=== PATIENT | female | born 1965 | race Caucasian/White ===

== ENCOUNTER 2019-07-25 08:06 | Outpatient (CLI) | payer BC, SELFPAY ==
--- NOTE | ~2019-07-25 | MM_ITS ---
EXAMINATION: MM screening katherine BI w eloisa HISTORY: Screening mammogram TECHNIQUE: Craniocaudal and mediolateral oblique 3-D tomosynthesis images were obtained and synthetic 2-D images were generated. CAD analysis was submitted and interpreted. COMPARISON: Comparison to multiple prior studies sequentially, with oldest reviewed study dated 02/03. BREAST PARENCHYMAL COMPOSITION: The breasts are heterogeneously dense, which may obscure small masses . FINDINGS: There is no evidence of suspicious mass, calcification, or architectural distortion to sugg est malignancy in either breast. There has been no suspicious interval change. IMPRESSION: 1. No mammographic evidence of malignancy. 2. Recommend routine screening mammography in one year. BI-RADS Category 1: Negative Reviewed, dictated and finalized at location A.
== END 2019-07-25 08:07 | disposition home or self-care (01) ==
LOC: ANHIMG 08:11
PROVIDERS: PCP Family Medicine; Visit Provider Family Medicine
DX: Z12.31 Encounter for screening mammogram for malignant neoplasm of breast (principal)
CPT/HCPCS: 77063; 77067

== ENCOUNTER → 2020-09-24 08:48 | Outpatient (CLI) | payer BC, SELFPAY ==
[2020-09-24 16:57] LABS: SARS-CoV-2 RNA PCR Negative
== END ==
PROVIDERS: PCP Family Medicine; Visit Provider Family Medicine
DX: R05 Cough (principal); Z20.822 Contact with and (suspected) exposure to COVID-19
CPT/HCPCS: C9803; U0003; U0005

== ENCOUNTER 2020-12-17 14:52 | Outpatient (CLI) | payer BC, SELFPAY ==
--- NOTE | ~2020-12-17 | MM_ITS ---
EXAMINATION: MM screening katherine BI w eloisa HISTORY: Screening TECHNIQUE: Craniocaudal and mediolateral oblique 3-D tomosynthesis images were obtained and synthetic 2-D images were generated. CAD analysis was submitted and interpreted. COMPARISON: Comparison to multiple prior studies sequentially, with oldest reviewed study dated 02/03. BREAST PARENCHYMAL COMPOSITION: There are scattered areas of fibroglandular density. FINDINGS: There is no evidence of suspicious mass, calcification, or architectural distortion to sugg est malignancy in either breast. There has been no suspicious interval change. IMPRESSION: 1. No mammographic evidence of malignancy. 2. Recommend routine screening mammography in one year. BI-RADS Category 1: Negative Reviewed, dictated and finalized at location A.
== END 2020-12-17 14:53 | disposition home or self-care (01) ==
PROVIDERS: PCP Family Medicine; Visit Provider Obstetrics & Gynecology
DX: Z12.31 Encounter for screening mammogram for malignant neoplasm of breast (principal)
CPT/HCPCS: 77063; 77067

== ENCOUNTER → 2021-05-14 03:37 | Outpatient (CLI) | payer BC, SELFPAY ==
[2021-05-14 22:11] LABS: SARS-CoV-2 RNA PCR Negative
== END ==
PROVIDERS: PCP Family Medicine; Visit Provider Family Medicine
DX: R05.9 Cough, unspecified (principal); Z20.822 Contact with and (suspected) exposure to COVID-19
CPT/HCPCS: C9803; U0003; U0005

== ENCOUNTER 2022-03-17 08:37 | Outpatient (CLI) | payer BC, SELFPAY ==
--- NOTE | ~2022-03-17 | MM_ITS ---
EXAMINATION: MM screening katherine BI w eloisa HISTORY: Screening mammogram TECHNIQUE: Craniocaudal and mediolateral oblique 3-D tomosynthesis images were obtained and synthetic 2-D images were generated. Bilateral rotated lateral CC views. CAD analysis was submitted and interp reted. COMPARISON: 12/17/2020, 07/25/2019 bilateral screening mammogram examinations 08/15/2017 diagnostic left mammogram and limited left breast ultrasound 07/24/2017 bilateral screening mammogram BREAST PARENCHYMAL COMPOSITION: There are scattered areas of fibroglandular density. FINDINGS: Stable fibroglandular asymmetry There is no evidence of suspicious mass, calcification, or architectural distortion to suggest malignancy in either breast. There has been no suspicious interva l change. IMPRESSION: 1. No mammographic evidence of malignancy. 2. Recommend routine screening mammography in one year. BI-RADS Category 2: Benign finding(s). Reviewed, dictated and finalized at location A. CENTER SUPERVISOR
== END 2022-03-17 08:38 | disposition home or self-care (01) ==
PROVIDERS: PCP Family Medicine; Visit Provider Obstetrics & Gynecology
DX: Z12.31 Encounter for screening mammogram for malignant neoplasm of breast (principal)
CPT/HCPCS: 77063; 77067

== ENCOUNTER 2023-06-06 08:05 | Outpatient (CLI) | payer BC, SELFPAY ==
--- NOTE | ~2023-06-06 | DEXA_ITS ---
Bone Density Report Name: BAN NICHOLS Age: 57 Sex: Female Ethnicity: White Date of : 1965 Indication: screening for osteoporosis; prior fracture; hysterectomy; Referring Provider: JASWANT DAVEY Study: Bone densitometry was performed. Exam Date: June 06, 2023 Accession number: [id number] Bone Density: Region BMD T-score Z-score Classification AP Spine(L1-L4) 1.164 1.1 2.3 Normal Femoral Neck (Left) 0.779 -0.6 0.5 Normal Total Hip (Left) 1.024 0.7 1.5 Normal Femoral Neck (Right) 0.795 -0.5 0.7 Normal Total Hip (Right) 0.992 0.4 1.2 Normal Total Hip Mean 1.008 0.6 1.4 Normal World Health Organization criteria for BMD impression classify patients as: Normal (T-score at or above -1.0), Osteopenia (T-score between -1.0 and -2.5), or Osteoporosis (T-score at or below -2.5). 10-year Fracture Risk: FRAX not reported because: Premenopausal woman All T-scores for Spine Total, Hip Total, Femoral Neck at or above -1.0 Clinical Information Provided by Patient: Has had a low trauma fracture Smokes Has used the following medications: Vitamin D, Calcium Has the following medical conditions: Hysterectomy Patient maximum height was 67 No regular weight bearing exercise Drinks caffeinated beverages Onset of menses at age 12 Premenopausal Number of children 3 Impression: The patient's bone mass is within expected range for age, gender and ethnicity. The patient has risk factors, including: smoking, previous fracture. Discussion: BONE DENSITY IS WITHIN EXPECTED LIMITS FOR AGE, SEX AND RACE. Bone density is within expected limits for age, sex and race at all sites measured. The patient should follow a healthful lifestyle (good nutrition with adequate calcium and vitamin D, and appropriate weight-bearing exercise). Follow-Up: Consider repeating this study in 5 years or sooner if there is some new clinical indication. Reported by: ANNAMARIE on 06/06/2023 9:00:00 AM. Reviewed, dictated and finalized at location A.
--- NOTE | ~2023-06-06 | MM_ITS ---
EXAMINATION: MM screening katherine BI w eloisa HISTORY: Screening TECHNIQUE: Craniocaudal and mediolateral oblique 3-D tomosynthesis images were obtained and synthetic 2-D images were generated. CAD analysis was submitted and interpreted. COMPARISON: Comparison to multiple prior studies sequentially, with oldest reviewed study dated 07/24. BREAST PARENCHYMAL COMPOSITION: There are scattered areas of fibroglandular density. FINDINGS: There is no evidence of suspicious mass, calcification, or architectural distortion to sugg est malignancy in either breast. There has been no suspicious interval change. IMPRESSION: 1. No mammographic evidence of malignancy. 2. Recommend routine screening mammography in one year. BI-RADS Category 1: Negative Reviewed, dictated and finalized at location A. OR PROJECT COORDINATOR
== END 2023-06-06 08:06 | disposition home or self-care (01) ==
PROVIDERS: PCP Family Medicine; Visit Provider Obstetrics & Gynecology
DX: Z12.31 Encounter for screening mammogram for malignant neoplasm of breast (principal); Z82.62 Family history of osteoporosis; Z78.0 Asymptomatic menopausal state
CPT/HCPCS: 77063; 77067; 77080

== ENCOUNTER 2023-11-14 11:01 | Outpatient (CLI) | payer BC, SELFPAY ==
--- NOTE | ~2023-11-14 | XR_ITS ---
XR chest 2V 11/14/2023 11:13 Indication: Cough for 3 weeks. History of smoking. Procedure: 2 view chest Comparison: No prior studies for comparison. Findings: Heart size normal. No focal air space disease, pulmonary edema, pleural effusion or suspect ed pneumothorax. No acute osseous abnormality. Impression: 1: No acute cardiopulmonary disease. Reviewed, dictated and finalized at location B. Impression: 1: No acute cardiopulmonary disease.
== END 2023-11-14 11:02 ==
PROVIDERS: PCP Physician Assistant; Visit Provider Physician Assistant
DX: R05.9 Cough, unspecified (principal)
CPT/HCPCS: 71046

== ENCOUNTER 2024-06-25 08:01 | Outpatient (CLI) | payer BC, SELFPAY ==
--- OUTSIDE RECORDS SUMMARY | 2024-06-25 08:04 | XMS_ITS | Clinical Summary ---
Author Organization [facility] Address [address] [place] [address] Care Team Providers Care Supervisor Carbon Paper Coating Name Role Phone Unknown, Notinfile Unavailable Unavailable Octavio Carrillo MD Primary Care Provider Allergies No known active allergies Medications escitalopram (LEXAPRO) 10 mg tablet Take 10 mg by mouth daily 11/28/2021 Active estradioL (ESTRACE) 1 mg tablet Take 1 mg by mouth daily 11/27/2021 Active levothyroxine (SYNTHROID) 75 mcg tablet Take 75 mcg by mouth 11/27/2021 Active Active Problems Problem Noted Date Diagnosed Date Graves' disease 12/24/2021 Overactive bladder 12/24/2021 Tobacco dependence syndrome 12/24/2021 Postsurgical hypothyroidism 04/04/2017 Assessment & Plan (04/04/2017 2:52 PM BARREL FINISHER): Start Synthroid, 75 mcg daily. Take med in the morning, on an empty stomach, apart from food and other meds. Check TSH, free T4 in 6 wks F/u in 6 m Other specified forms of tremor 01/21/2014 Palpitations 01/21/2014 Resolved Problems Problem Noted Date Diagnosed Date Resolved Date Multinodular goiter 01/26/2017 04/04/20 17 Assessment & Plan (02/03/2017 12:32 PM CDT): This is a 51-year-old female who has a longstanding history with the diagnoses of a toxic multinodular goiter. Patient has perceived progressive increase in size and number of her thyroid nodules. Patient has been taken off of her methimazole secondary to recent normal thyroid blood work. Patient does exhibit mild local compressive symptoms. After reviewing patient's medical record, in correlation with her diagnostic testing and my physical findings I concur with Endocrinology in that the patient meets criteria to undergo a minimally invasive total thyroidectomy. Continuous recurrent laryngeal nerve monitoring will be utilized. A thorough discussion took place today pertaining to the surgical management of thyroid disease. Collaboration on the recurrent laryngeal nerve and parathyroid glands were discussed. The potential functional disability that could incur should the structures be injured. All questions were answered to what appeared to be patient's understanding and satisfaction. After the procedure was explained in full the potential risk, complications, benefits and alternatives patient would like to proceed. Patient will be scheduled in a timely fashion. Assessment & Plan (01/26/2017 3:23 PM CDT): Ultrasound performed The patient refers to FNA's ( x 2 ) in the past Will try to get prior records Surgery is recommended. Name and number for Dr Gutiérrez provided. Hyperthyroidism 01/26/2017 04/04/2017 Assessment & Plan (03/24/2017 11:07 AM BARREL FINISHER): Patient was instructed to call Dr. Cornell is a office to discuss being placed on thyroid hormone replacement. Currently, patient is asymptomatic. Patient states she has a very busy holiday season and wants to make sure she does not become symptomatic. Additional wound care instructions were discussed. Assessment & Plan (01/26/2017 1:32 PM CDT): Options of treatment discussed at length, including oral meds ( Thionamides ) vs LINTON ablation vs surgery were explained. Will check thyroid function tests. Because of the size and multiplicity of the thyroid nodules, surgery is recommended. She seems to be receptive to this option. Depending on Thyroid levels, might need Tapazole before surgery and /or betablockers. Immunizations Immunization Administration Dates Next Due Influenza, Quadrivalent, Split, Intramuscular Influenza, Trivalent, IM (MDV) 05/31/2017,2014 Tdap 07/02/2020,05/31/2017 Surgical History Surgery Date Site/Laterality Comments TOTAL THYROIDECTOMY Medical History Medical History Date Comments Hyperthyroidism Graves' disease 12/24/2021 Overactive bladder 12/24/2021 Family History Relation Name Status Comments Mother Alive Social History Tobacco Use Types Packs/Day Years Used Date Smoking Tobacco: Some Days Cigarettes Smokeless Tobacco: Never Tobacco Cessation:Ready to Q uit: No; Counseling Given: Yes Alcohol Use Standard Drinks/Week Comments No 0 (1 standard drink = 0.6 oz pur e alcohol) Personal Safety Answer Date Recorded Getting School Help Needed Not on file 07/02 Comments Unknown Sex and Gender Information Value Date Recorded Sex Assigned at Not on file Legal Sex Female 4:41 PM BARREL FINISHER Gender Identity Not on file Sexual Orientation Not on file Obstetrics History Last Filed Vital Signs Vital Sign Reading Time Taken Comments Blood Pressure 131/87 12/24/2021 9:01 AM CDT Pulse 82 12/24/2021 9:01 AM CDT Temperature - - Respiratory Rate 12 04/04/2017 2:18 PM BARREL FINISHER Oxygen Saturation - - Inhaled Oxygen Concentration - - Weight 72.2 kg (159 lb 3.2 oz) 12/24/2021 9:01 A M CDT Height 168.9 cm (5' 6.5 ) 12/24/2021 9:01 AM CDT Body Mass Index 25.31 12/24/2021 9:01 AM CDT Plan of Treatment Health Maintenance Due Date Last Done Comments Breast Cancer Screening-Mammogram 1965 Cervical Cancer Screening 1965 Colon Cancer Screening-Colonoscopy 1965 Hepatitis C Screening 1965 Pneumococcal vaccine <65 (1 of 2 - PCV) 12/21/1971 Hepatitis B Screening 12/21/1983 Regular Well Visit/Exam 18-64 12/21/1983 Zoster Vaccine (1 of 2) 12/21/2015 Depression Screening 04/04/2018 04/04/2017, 01/27/20 17 Covid-19 Vaccine ( season) 01/07/202406/2020, 07/17/2020 Influenza Vaccine (#1) 2024 0, 05/31/2017, 02/18/2015 DTaP/Tdap/Td Vaccine (3 - Td or Tdap) 07/02/2030, 05/31/2017 Insurance [employer] OOS Care Teams Supervisor Carbon Paper Coating Relationship Specialty Start Date End Date Octavio Carrillo MD [address] [place] [id number] PCP - General Family Medicine 12/15/21 Unknown, Notinfile 01/26/17
--- OUTSIDE RECORDS SUMMARY | 2024-06-25 08:04 | XMS_ITS | Clinical Summary ---
Author Organization [facility] Address [address] [place] [place] [address] Care Team Providers Care Scientific Software Engineer Name Role Phone Unavailable Primary Care Provider Unavailabl e Source Comments [facility] [facility],non-owned Affiliates and Associated Physician Practices is amultiple site organization consisting of ambulatory clinics and hospital sitesin [place], [place], [place] and [place]. This disclosure is being madepursuant to the Care Everywhere program and may not contain all information available regarding this patient. Last updated 18.[facility] Active Problems Problem Noted Date Diagnosed Date Other malaise 02/19/2015 Thyrotoxicosis with diffuse goiter and without thyroid storm 02/04/2014 Anemia 02/04/2014 Overview (08/07/2017): historical Other specified postprocedural states 01/21/2014 Overview (08/07/2017): Age 4 Acquired absence of other organs 01/21/2014 Adverse effect of selective serotonin reuptake i nhibitor 01/21/2014 Personal history of other di seases of the circulatory system 01/21/2014 Other specified forms of tremor 01/21/2014 Acquired absence of both cervix and uterus 01/21 Overview (08/07/2017): Ovaries in Palpitations 01/21/2014 Abnormal weight loss 01/21/2014 Family History Medical History Relation Name Comments Thyroid Disease Mother hyperthyroid thionamide for 2 y Heart Disease Neg Hx Relation Name Status Comments Mother Social History Tobacco Use Types Packs/Day Years Used Date Smoking Tobacco: Every Day Smokeless Tobacco: Never Alcohol Use Standard Drinks/Week Comments Yes 0 (1 standard drink = 0.6 oz pur e alcohol) Sex and Gender Information Value Date Recorded Sex Assigned at Not on file Gender Identity Not on file Sexual Orientation Not on file Last Filed Vital Signs Vital Sign Reading Time Taken Comments Blood Pressure 108/70 02/04/2014 10:05 AM CDT Pulse 84 02/04/2014 10:05 AM CDT Temperature 36.4 C (97.6 F) 02/04/2014 10:05 AM CDT Respiratory Rate 20 02/04/2014 10:05 AM CDT Oxygen Saturation 98% 01/21/2014 10:55 AM CDT Inhaled Oxygen Concentration - - Weight 62 kg (136 lb 9.6 oz) 02/04/2014 10:05 AM CDT Height 165.1 cm (5' 5 ) 01/21/2014 10:55 AM CDT Body Mass Index 22.73 01/21/2014 10:55 AM CDT Plan of Treatment Health Maintenance Due Date Last Done Comments COLOGUARD (AGES 45-75) - COL ON CA SCREENING 1965 COLON MONITORING 1965 COLONOSCOPY - COLON CA SCREENING 1965 CT COLONOGRAPHY - COLON CA SCREENING 1965 Colorectal Cancer Screening 1965 FIT - COLON CA SCREENING 1965 FLEX SIG - COLON CA SCREENING 1965 LIPID TESTING 1965 MAMMOGRAM 1965 PAP SMEAR 1965 HIV SCREENING 1980 HEPATITIS C SCREENING 12/16/1983 DTAP/TDAP/TD VACCINES (1 - Tdap) 1984 HEPATITIS B VACCINE (1 of 3 - 19+ 3-dose series) 1984 PNEUMOCOCCAL VACCINE 50+ (1 of 2 - PCV) 1984 PNEUMOCOCCAL VACCINE (1 of 2 - PCV) 1984 ZOSTER VACCINE (1 of 2) 12/21/2015 COVID-19 VACCINE ( - 2023-2 5 season) 2024 INFLUENZA VACCINE (#1) 2024 DEPRESSION SCREENING 05/08/2024 HIB VACCINE Aged Out No longer eligi ble based on patient's age to complete this topic HPV VACCINE Aged Out No longer eligi ble based on patient's age to complete this topic MENINGOCOCCAL (Group B) VACCINE Aged Out No longer eligible based on patient's age to complete this topic MENINGOCOCCAL VACCINE Aged Out No nahs bacilio eligible based on patient's age to complete this topic
--- OUTSIDE RECORDS SUMMARY | 2024-06-25 08:04 | XMS_ITS | Clinical Summary ---
Author Organization [facility] Address [facility] [place] [address] Care Team Providers Care Press Operator Assistant Name Role Phone Zoë Shahid MD Primary Care Provider [phone] Allergies No known active allergies Medications hydrocodone-acet aminophen 5-325 MG tablet Take 1 tablet by mouth every 6 (six) hours as needed for Pain. 12 tablet 04/14/2017 Active Social History Tobacco Use Types Packs/Day Years Used Date Smoking Tobacco: Every Day Smokeless Tobacco: Current Alcohol Use Standard Drinks/Week Comments No 0 (1 standard drink = 0.6 oz pur e alcohol) Comments No Sex and Gender Information Value Date Recorded Sex Assigned at Not on file Legal Sex Female 12:40 PM OVERNIGHT STOCKER Gender Identity Not on file Sexual Orientation Not on file Last Filed Vital Signs Vital Sign Reading Time Taken Comments Blood Pressure 139/85 04/14/2017 12:45 PM OVERNIGHT STOCKER Pulse 94 04/14/2017 12:45 PM OVERNIGHT STOCKER Temperature 37.2 C (98.9 F) 04/14/2017 12:45 PM OVERNIGHT STOCKER Respiratory Rate 18 04/14/2017 12:45 PM OVERNIGHT STOCKER Oxygen Saturation 100% 04/14/2017 12:45 PM OVERNIGHT STOCKER Inhaled Oxygen Concentration - - Weight 63.5 kg (140 lb) 04/14/2017 12:49 PM OVERNIGHT STOCKER Height 167.6 cm (5' 6 ) 04/14/2017 12:49 PM OVERNIGHT STOCKER Body Mass Index 22.6 04/14/2017 12:49 PM OVERNIGHT STOCKER Plan of Treatment Health Maintenance Due Date Last Done Comments Colorectal Cancer Screening Colonoscopy (10 Years) 1965 Annual Physical 1968 Pneumococcal Vaccine: Pediat rics (0 to 5 Years) and At-Risk Patients (6 to 64 Years) (1 of 2 - PCV) 12/21/1971 Hepatitis C 12/21/1983 DTaP, Tdap and Td Vaccines ( 1 - Tdap) 1984 Hepatitis B Vaccines (1 of 3 - 19+ 3-dose series) 1984 Mammogram Screening 2005 Zoster Vaccines (1 of 2) 12/21/2015 COVID-19 Vaccine (1 - 2023-2 5 season) 2024 Influenza Adult (#1) 2024 Meningococcal B Vaccine Aged Out No l onger eligible based on patient's age to complete this topic Meningococcal Vaccine Aged Out No nash bacilio eligible based on patient's age to complete this topic RSV Immunizations Under 20 Months Aged Out No longer eligible based on patient's age to complete this topic Insurance GENERIC - [employer] Care Teams Press Operator Assistant Relationship Specialty Start Date End Date Zoë Shahid MD PCP - General FAMILY PRACTICE 04/14/17
--- OUTSIDE RECORDS SUMMARY | 2024-06-25 08:04 | XMS_ITS | Referral Summary ---
Author Organization [facility] Address [address] [place] [address] Care Team Providers Care Silver Recovery Operator Name Role Phone Unknown, Notinfile Unavailable Unavailable Octavio Carrillo MD Primary Care Provider [phone] Allergies No known active allergies Medications escitalopram [...] 04/04/2017 Assessment & Plan (04/04/2017 2:52 PM ASPHALT STILL OPERATOR): Start Synthroid, 75 mcg daily. Take med [...] 04/04/2017 Assessment & Plan (03/24/2017 11:07 AM ASPHALT STILL OPERATOR): Patient was instructed to call Dr. Cornell [...] Influenza, Trivalent, IM (MDV) 05/31/2017,2014 Tdap 07/02/2020,05/31/2017 Social History Tobacco Use Types Packs/Day Years [...] on file Legal Sex Female 4:41 PM ASPHALT STILL OPERATOR Gender Identity Not on file Sexual Orientation Not on file Last Filed Vital Signs Vital Sign Reading Time Taken Comments Blood Pressure 131/87 12/24/2021 9:01 AM CDT Pulse 82 12/24/2021 9:01 AM CDT Temperature - - Respiratory Rate 12 04/04/2017 2:18 PM ASPHALT STILL OPERATOR Oxygen Saturation - - Inhaled Oxygen Concentration - - Weight 72.2 kg (159 lb 3.2 oz) 12/24/2021 9:01 A M CDT Height 168.9 cm (5' 6.5 ) 12/24/2021 9:01 AM CDT Body Mass Index 25.31 12/24/2021 9:01 AM CDT Plan of Treatment Not on file Insurance [employer] OOS Care Teams Silver Recovery Operator Relationship Specialty Start Date End Date Octavio Carrillo MD [address] [facility] [place] [id number] PCP - General Family Medicine 12/15/21 Unknown, Notinfile 01/26/17
--- OUTSIDE RECORDS SUMMARY | 2024-06-25 08:04 | XMS_ITS | Referral Summary ---
Author Organization [facility] Address [address] [facility] [place] [address] Care Team Providers Care First Assistant Name Role Phone Unavailable Primary Care Provider Unavailabl e Source Comments [facility],non-owned Affiliates and Associated Physician Practices is amultiple site organization consisting of ambulatory clinics and hospital sitesin [place], [place]. This disclosure is being madepursuant to the Care Everywhere program and may not contain all information available regarding this patient. Last updated 18.[facility] [employer] Active Problems Problem Noted Date Diagnosed Date [...] in Palpitations 01/21/2014 Abnormal weight loss 01/21/2014 Social History Tobacco Use Types Packs/Day Years [...] 01/21/2014 10:55 AM CDT Plan of Treatment Not on file
--- OUTSIDE RECORDS SUMMARY | 2024-06-25 08:04 | XMS_ITS | Patient Health Summary ---
Author Organization [facility] Address [address] [place] [address] Care Team Providers Care Induction Heat Treater Name Role Phone Unavailable Primary Care Provider Unavailabl e Note from [facility],non-owned Affiliates and Associated Physician Practices is amultiple site organization consisting of ambulatory clinics and hospital sitesin [place], [place], [place] and [place]. This disclosure is being madepursuant to the Care Everywhere program and may not contain all information available regarding this patient. Last updated 18.[facility] Active Problems Problem Noted Date Diagnosed Date Other malaise 02/19/2015 Thyrotoxicosis with diffuse goiter and without thyroid storm 02/04/2014 Anemia 02/04/2014 Other specified postprocedural states 01/21/2014 Acquired absence of other organs 01/21/2014 Adverse effect of selective serotonin reuptake i nhibitor 01/21/2014 Personal history of other di seases of the circulatory system 01/21/2014 Other specified forms of tremor 01/21/2014 Acquired absence of both cervix and uterus 01/21 Palpitations 01/21/2014 Abnormal weight loss 01/21/2014 Social [...] Mass Index 22.73 01/21/2014 10:55 AM CDT Procedures * T4 FREE(Performed 03/11/2014) * T3 FREE(Performed 03/11/2014) * ALT(Performed 03/11/2014) * TSH(Performed 03/11/2014) * CBC W AUTO DIFFERENTIAL(Performed 03/11/2014) * NM THYROID UPTAKE AND SCAN(Performed 01/28/2014) * ERYTHROCYTE SEDIMENTATION RATE(Performed 01/21/2014) * TSH(Performed 01/21/2014) * T4 FREE(Performed 01/21/2014) * T3 FREE(Performed 01/21/2014) * COMPREHENSIVE METABOLIC PANEL(Performed 01/21/2014) * CBC W AUTO DIFFERENTIAL(Performed 01/21/2014) * THYROTROPIN RECEPTOR ANTIBODY(Performed 01/21/2014) * CBC W AUTO DIFFERENTIAL(Performed 01/21/2014) Results * (ABNORMAL) T3 FREE (03/11/2014 7:13 AM FINE SANDER) Only the most recent of2 resultswithin the time period is included. [facility] T3 Free 6.1(H) 2.3 - 4.2 pg/mL [facility] ([facility]) Comment: REPORT COMMENT: START IN 4 WEEKS; START IN 4 WEEKS; START IN 4 WEEKS; START FASTING Test Performed at: [employer] [place] [address] [place] [address] ANANT GOFF DO,MPH Blood specimen (specimen) BLOOD SPECIMEN / Unknown 03/11/2014 7:13 AM FINE SANDER 03/11/2014 7:14 AM FINE SANDER Narrative [facility] ([facility]) - 03/12/2014 2:00 AM FINE SANDER Start in 4 weeks Moises Blue MD LAB - CHEMISTRY JEAN-PIERRE TAVERA [facility] ([facility]) * CBC W AUTO DIFFERENTIAL (03/11/2014 7:13 AM FINE SANDER) Only the most recent of3 resultswithin the time period is included. [facility] WBC 5.3 3.8 - 10.8 Thousand/u L [facility] ([facility]) RBC 4.30 3.80 - 5.10 Million/uL [facility] ([facility]) Hemoglobin 13.4 11.7 - 15.5 g/dL [facility] ([facility]) Hematocrit 39.5 35.0 - 45.0 % [facility] ([facility]) MCV 91.8 80.0 - 100.0 fL [facility] ([facility]) MCH 31.1 27.0 - 33.0 pg [facility] ([facility]) MCHC 33.9 32.0 - 36.0 g/dL [facility] ([facility]) RDW-CV 14.4 11.0 - 15.0 % [facility] ([facility]) Platelet 235 140 - 400 Thousand/u L [facility] ([facility]) Neutrophils Absolute 2,549 1,500 - 7,800 cells/uL [facility] ([facility]) Lymphocyte Absolute Manual 2,279 850 - 3,900 cells/uL [facility] ([facility]) Monocytes Absolute 292 200 - 950 cells/uL [facility] ([facility]) Eosinophils Absolute 164 15 - 500 cells/uL [facility] ([facility]) Basophil Absolute Manual 16 0 - 200 cells/uL [facility] ([facility]) Neutrophils % 48.1 % [facility] ([facility]) Lymphocytes % 43.0 % [facility] ([facility]) Monocytes % 5.5 % [facility] ([facility]) Eosinophils % 3.1 % [facility] ([facility]) Basophil % 0.3 % [facility] ([facility]) Comment: Test Performed at: [place] [address] ANANT GOFF DO,MPH Blood specimen (specimen) BLOOD SPECIMEN / Unknown 03/11/2014 7:13 AM FINE SANDER 03/11/2014 7:14 AM FINE SANDER Narrative [facility] ([facility]) - 03/12/2014 2:00 AM FINE SANDER Start in 4 weeks Moises Blue MD LAB - HEMATOLOGY ORD ERABLES [facility] ([facility]) * ALT (03/11/2014 7:13 AM FINE SANDER) Pathologist [facility] ALT 15 6 - 29 U/L [facility] ([facility]) Comment: Test Performed at: [place] [address] ANANT GOFF DO,MPH Blood specimen (specimen) BLOOD SPECIMEN / Unknown 03/11/2014 7:13 AM FINE SANDER 03/11/2014 7:14 AM FINE SANDER Narrative [facility] ([facility]) - 03/12/2014 2:00 AM FINE SANDER Start in 4 weeks Moises Blue MD LAB - CHEMISTRY JEAN-PIERRE TAVERA Performing Organization Address [facility] de Phone Number [facility] ([facility]) * (ABNORMAL) TSH (03/11/2014 7:13 AM FINE SANDER) Only the most recent of2 resultswithin the time period is included. TSH 0.01(L) mIU/L [facility] ([facility]) Comment: Reference Range > or = 20 Years 0.40-4.50 Ranges First trimester 0.26-2.66 Second trimester 0.55-2.73 Third trimester 0.43-2.91 Test Performed at: [employer] [place] [address] ANANT GOFF DO,MPH Blood specimen (specimen) BLOOD SPECIMEN / Unknown 03/11/2014 7:13 AM FINE SANDER 03/11/2014 7:14 AM FINE SANDER Narrative [facility] ([facility]) - 03/12/2014 2:00 AM FINE SANDER Start in 4 weeks Moises Blue MD LAB - CHEMISTRY JEAN-PIERRE TAVERA Performing Organization Address [facility] de Phone Number [facility] ([facility]) * T4 FREE (03/11/2014 7:13 AM FINE SANDER) Only the most recent of2 resultswithin the time period is included. T4 Free 1.6 0.8 - 1.8 ng/dL [facility] ([facility]) Comment: Test Performed at: [employer] [place] [place] [id number] ANANT GOFF DO,MPH Blood specimen (specimen) BLOOD SPECIMEN / Unknown 03/11/2014 7:13 AM FINE SANDER 03/11/2014 7:14 AM FINE SANDER Narrative [facility] ([facility]) - 03/12/2014 2:00 AM FINE SANDER Start in 4 weeks Moises Blue MD LAB - CHEMISTRY JEAN-PIERRE TAVERA [facility] Organization Address City/State/ZIP Co de Phone Number [facility] ([facility]) * NM THYROID UPTAKE AND SCAN (01/28/2014 8:56 AM CDT) Anatomical Region Laterality Modality Chest Other Impressions 01/28/2014 4:45 PM CDT Impression: 1. Bilaterally enlarged thyroid lobes 2. Increased area of uptake in the inferior aspect of the region of the thyroid, suggestive of retrosternal extension. 3. Subtle focal area of mild increased uptake superior to the thyroid, which may represent lingual thyroid. 4. I-123 thyroid uptake of 88.3% indicative of hyperactive thyroid gland. 5. We will be happy to treat the patient as clinically indicated. Dictated by Arnel Dewitt M.D. (radiology scheduler) This report was approved by ARNEL DEWITT on 01/28/2014 2:58 PM . I, Dr. CONNIE HOLDEN M.D. have personally reviewed and interpreted this examination/study. This report was electronically signed by CONNIE HOLDEN M.D. on 01/28/2014 4:45 PM . Narrative 01/28/2014 4:45 PM CDT Procedure: Thyroid Uptake and Imaging Agent: 51 mCi of I-123 Na Iodide capsule orally History: Hyperthyroid, likely autonomous. Most recent labs on 01/21/2014, is TSH of less than 0.004 micro-IU/mL, and FT4 of 2.4 ng/dL. Findings: Static anterior and anterior-oblique images show bilaterally enlarged thyroid lobes with a relatively large increased area of uptake in the inferior aspect of the region of the thyroid, suggestive of a retrosternal extension. In addition there is a subtle focal area of mild increased uptake superior to the thyroid, which may represent lingual thyroid. I-123 uptake within the thyroid gland at 24 hours 88.3%(Normal limits: 15%-35%). Procedure Note Connie Holden MD - 08/05/2017 Procedure: Thyroid Uptake and Imaging Agent: 51 mCi of I-123 Na Iodide capsule orally History: Hyperthyroid, likely autonomous. Most recent labs on 01/21/2014, is TSH ofless than 0.004 micro-IU/mL, and FT4 of 2.4 ng/dL. Findings: Static anterior and anterior-oblique images show bilaterally enlargedthyroid lobes with a relatively large increased area of uptake in theinferior aspect of the region of the thyroid, suggestive of a retrosternalextension. In addition there is a subtle focal area of mild increased uptake superior to the thyroid, whichmay represent lingual thyroid. I-123 uptake within the thyroid gland at 24 hours 88.3%(Normal limits:15%-35%). IMPRESSION Impression: 1. Bilaterally enlarged thyroid lobes 2. Increased area of uptake in the inferior aspect of the region of thethyroid, suggestive of retrosternal extension. 3. Subtle focal area of mild increased uptake superior to the thyroid,which may represent lingual thyroid. 4. I-123 thyroid uptake of 88.3% indicative of hyperactive thyroidgland. 5. We will be happy to treat the patient as clinically indicated. Dictated by Arnel Dewitt M.D. (radiology scheduler) This report was approved by ARNEL DEWITT on 01/28/2014 2:58 PM . I, Dr. CONNIE HOLDEN M.D. have personally reviewed and interpreted thisexamination/study. This report was electronically signed by CONNIE HOLDEN M.D. on 01/28/20144:45 PM . Moises Blue MD NM ORDERABLES * ERYTHROCYTE SEDIMENTATION RATE (01/21/2014 3:12 PM CDT) Pathologist [facility] Erythrocyte Sedimentation Rate Westergren 15 0 - 20 MM/HR [facility] Blood specimen (specimen) BLOOD SPECIMEN / Unknown 01/21/2014 3:12 PM CDT 01/21/2014 3:36 PM CDT Moises Blue MD LAB - HEMATOLOGY ORD ERABLES [address] [phone] * (ABNORMAL) COMPREHENSIVE METABOLIC PANEL (01/21/2014 3:12 PM CDT) BUN 12 7 - 26 mg/dL [facility] Creatinine 0.5(L) 0.6 - 1.2 mg/dL [facility] Sodium 140 136 - 145 mmol/L [facility] Potassium 4.1 3.5 - 4.5 mmol/L [facility] Chloride 106 98 - 107 mmol/L [facility] CO2 24 22 - 29 mmol/L [facility] Glucose 116(H) 70 - 115 mg/dL [facility] Calcium 8.9 8.4 - 10.2 mg/dL [facility] Protein Total 6.2 6.0 - 8.3 g/dL [facility] Albumin 3.2(L) 3.4 - 5.0 g/dL [facility] Bilirubin Total 0.4 0.2 - 1.2 mg/dL [facility] Alkaline Phosphatase 66 40 - 150 Units/L [facility] ALT 18 0 - 55 Units/L [facility] AST 17 5 - 34 Units/L [facility] Anion Gap 14 8 - 18 [facility] BUN/Creatinine Ratio 24(H) 7 - 23 [facility] Osmolality Calculated 276 270 - 300 mOsm/kg [facility] Albumin/Globulin Ratio 1.1 1.1 - 2.3 [facility] eGFR >60 >60 mL/min/1.7 3 m2 [facility] Blood specimen (specimen) BLOOD SPECIMEN / Unknown 01/21/2014 3:12 PM CDT 01/21/2014 3:37 PM CDT Moises Blue MD LAB - CHEMISTRY JEAN-PIERRE TAVERA [facility] Organization Address City/State/[facility] Co de Phone Number [address] [phone] * (ABNORMAL) THYROTROPIN RECEPTOR ANTIBODY (01/21/2014 3:12 PM CDT) Thyrotropin Receptor Antibody 3.47(H) 0.00 - 1.75 IU/L [facility] (BEAKER) Blood specimen (specimen) BLOOD SPECIMEN / Unknown 01/21/2014 3:12 PM CDT 01/22/2014 9:05 AM CDT Narrative [facility] ([place]) - 01/23/2014 3:21 PM CDT Performed at: - [address] [id number] Senior Chemist: Anant Montelongo MD, Phone: [phone] Moises Blue MD LAB - CHEMISTRY JEAN-PIERRE [facility] Organization Address City/State/ZIP Co de Phone Number [facility])
== END 2024-06-25 08:02 | disposition home or self-care (01) ==
LOC: ANHAUDIO 08:01
PROVIDERS: PCP Family Medicine; Visit Provider Family Medicine
DX: H91.90 Unspecified hearing loss, unspecified ear (principal)
CPT/HCPCS: 92557; 92567

== ENCOUNTER 2024-07-02 09:51 | Outpatient (CLI) | payer BC, SELFPAY ==
--- NOTE | ~2024-07-02 | MM_ITS ---
EXAMINATION: MM screening [facility] BI w eloisa HISTORY: Screening mammogram TECHNIQUE: Craniocaudal and mediolateral oblique 3-D tomosynthesis images were obtained and synthetic 2-D images were generated. CAD analysis was submitted and interpreted. COMPARISON: 06/06/2023, 03/17/2022, 12/17/2020 BREAST PARENCHYMAL COMPOSITION:Not Dense. There are scattered areas of fibroglandular density. FINDINGS: No suspicious mass, calcification, or architectural distortion are identified in either claudette ast to suggest malignancy. There has been no suspicious interval change. IMPRESSION: No mammographic evidence of malignancy. Recommend routine screening mammography in one year. BI-RADS Category 1: Negative Reviewed, dictated and finalized at location . [employer]
--- OUTSIDE RECORDS SUMMARY | 2024-07-02 11:09 | XMS_ITS | Clinical Summary ---
Author Organization [facility] Address [address] [place] [address] Care Team Providers Care Billing Control Clerk Name Role Phone Unknown, Notinfile Unavailable Unavailable Octavio Carrillo MD Primary Care Provider [phone] Allergies No known active allergies Medications escitalopram [...] 04/04/2017 Assessment & Plan (04/04/2017 2:52 PM DENTAL LABORATORY ASSISTANT): Start Synthroid, 75 mcg daily. Take med [...] 04/04/2017 Assessment & Plan (03/24/2017 11:07 AM DENTAL LABORATORY ASSISTANT): Patient was instructed to call Dr. Cornell [...] on file Legal Sex Female 4:41 PM DENTAL LABORATORY ASSISTANT Gender Identity Not on file Sexual Orientation Not on file Obstetrics History Last Filed Vital Signs Vital Sign Reading Time Taken Comments Blood Pressure 131/87 12/24/2021 9:01 AM CDT Pulse 82 12/24/2021 9:01 AM CDT Temperature - - Respiratory Rate 12 04/04/2017 2:18 PM DENTAL LABORATORY ASSISTANT Oxygen Saturation - - Inhaled Oxygen Concentration [...] Cancer Screening-Colonoscopy 1965 Hepatitis C Screening 1965 Hepatitis B Screening 12/21/1983 Regular Well Visit/Exam 18-64 12/21/1983 Pneumococcal vaccine <65 (1 of 2 - PCV) 1984 Zoster Vaccine (1 of 2) 12/21/2015 Depression Screening 04/04/2018 04/04/2017, 01/27/20 17 Covid-19 Vaccine ( season) 01/07/202406/2020, 07/17/2020 Influenza Vaccine (#1) 2024 0, 05/31/2017, 02/18/2015 DTaP/Tdap/Td Vaccine (3 - Td or Tdap) 07/02/2030, 05/31/2017 Insurance [employer] OOS Care Teams Billing Control Clerk Relationship Specialty Start Date End Date Octavio Carrillo MD [address] [place] [id number] PCP - General Family Medicine 12/15/21 Unknown, Notinfile 01/26/17
--- OUTSIDE RECORDS SUMMARY | 2024-07-02 11:09 | XMS_ITS | Referral Summary ---
Author Organization [facility] Address [address] [place] [address] Care Team Providers Care Front Desk Person Name Role Phone Unavailable Primary Care Provider Unavailabl e Source Comments [facility],non-owned Affiliates and Associated Physician Practices is amultiple site organization consisting of ambulatory clinics and hospital sitesin [place], [place], [place] and [place]. This disclosure is being madepursuant to the Care Everywhere program and may not contain all information available regarding this patient. Last updated 18.[facility] [employer] Active Problems Problem Noted Date Diagnosed Date [...]
--- OUTSIDE RECORDS SUMMARY | 2024-07-02 11:09 | XMS_ITS | Clinical Summary ---
Author Organization [facility] Address [address] [place] [address] Care Team Providers Care Oncology Admin Name Role Phone Unavailable Primary Care Provider Unavailabl e Source Comments [facility] [employer],non-owned Affiliates and Associated Physician Practices is amultiple site organization consisting of ambulatory clinics and hospital sitesin [place], [place], [place] and [place]. This disclosure is being madepursuant to the Care Everywhere program and may not contain all information available regarding this patient. Last updated 18.[facility] [employer] Active Problems Problem Noted Date Diagnosed Date [...] this topic MENINGOCOCCAL VACCINE Aged Out No nash bacilio eligible based on patient's age to complete this topic
--- OUTSIDE RECORDS SUMMARY | 2024-07-02 11:09 | XMS_ITS | Clinical Summary ---
Author Organization [facility] Address [facility] [place] [address] Care Team Providers Care Coffee Roaster Name Role Phone Zoë Shahid MD Primary Care Provider [phone] Allergies No known active allergies Medications hydrocodone-acet [...] on file Legal Sex Female 12:40 PM PARKING LOT LABORER Gender Identity Not on file Sexual Orientation Not on file Last Filed Vital Signs Vital Sign Reading Time Taken Comments Blood Pressure 139/85 04/14/2017 12:45 PM PARKING LOT LABORER Pulse 94 04/14/2017 12:45 PM PARKING LOT LABORER Temperature 37.2 C (98.9 F) 04/14/2017 12:45 PM PARKING LOT LABORER Respiratory Rate 18 04/14/2017 12:45 PM PARKING LOT LABORER Oxygen Saturation 100% 04/14/2017 12:45 PM PARKING LOT LABORER Inhaled Oxygen Concentration - - Weight 63.5 kg (140 lb) 04/14/2017 12:49 PM PARKING LOT LABORER Height 167.6 cm (5' 6 ) 04/14/2017 12:49 PM PARKING LOT LABORER Body Mass Index 22.6 04/14/2017 12:49 PM PARKING LOT LABORER Plan of Treatment Health Maintenance Due Date [...] complete this topic Insurance GENERIC - [place] [address] MEDICAL REIMBURSEMENTS OF [employer] Care Teams Coffee Roaster Relationship Specialty Start Date End Date Zoë Shahid MD PCP - General FAMILY PRACTICE 04/14/17
--- OUTSIDE RECORDS SUMMARY | 2024-07-02 11:09 | XMS_ITS | Referral Summary ---
Author Organization [facility] Address [address] [place] [address] Care Team Providers Care Tariff Compiling Clerk Name Role Phone Unknown, Notinfile Unavailable Unavailable Octavio Carrillo MD Primary Care Provider [phone] Allergies No known active allergies Medications escitalopram [...] 04/04/2017 Assessment & Plan (04/04/2017 2:52 PM BLINDSTITCH LAPEL PADDER): Start Synthroid, 75 mcg daily. Take med [...] 04/04/2017 Assessment & Plan (03/24/2017 11:07 AM BLINDSTITCH LAPEL PADDER): Patient was instructed to call Dr. Cornell [...] on file Legal Sex Female 4:41 PM BLINDSTITCH LAPEL PADDER Gender Identity Not on file Sexual Orientation Not on file Last Filed Vital Signs Vital Sign Reading Time Taken Comments Blood Pressure 131/87 12/24/2021 9:01 AM CDT Pulse 82 12/24/2021 9:01 AM CDT Temperature - - Respiratory Rate 12 04/04/2017 2:18 PM BLINDSTITCH LAPEL PADDER Oxygen Saturation - - Inhaled Oxygen Concentration - - Weight 72.2 kg (159 lb 3.2 oz) 12/24/2021 9:01 A M CDT Height 168.9 cm (5' 6.5 ) 12/24/2021 9:01 AM CDT Body Mass Index 25.31 12/24/2021 9:01 AM CDT Plan of Treatment Not on file Insurance [employer] OOS Care Teams Tariff Compiling Clerk Relationship Specialty Start Date End Date Octavio Carrillo MD [address] [facility] [place] [id number] PCP - General Family Medicine 12/15/21 Unknown, Notinfile 01/26/17
--- OUTSIDE RECORDS SUMMARY | 2024-07-02 11:09 | XMS_ITS | Patient Health Summary ---
Author Organization [facility] Address [address] [place] [address] Care Team Providers Care Administrative Resident Name Role Phone Unavailable Primary Care Provider Unavailabl e Note from [facility],non-owned Affiliates and Associated Physician Practices is amultiple site organization consisting of ambulatory clinics and hospital sitesin [place], [place], [place] and [place]. This disclosure is being madepursuant to the Care Everywhere program and may not contain all information available regarding this patient. Last updated 18.[facility] Active Problems Problem Noted Date Diagnosed Date [...] * (ABNORMAL) T3 FREE (03/11/2014 7:13 AM QUALITY CONTROL SUPERVISOR) Only the most recent of2 resultswithin the time period is included. [facility] T3 Free 6.1(H) 2.3 - 4.2 pg/mL [facility] ([facility]) Comment: REPORT COMMENT: START IN 4 WEEKS; START IN 4 WEEKS; START IN 4 WEEKS; START FASTING Test Performed at: [facility] [id number] [place] [address] ANANT GOFF DO,MPH Blood specimen (specimen) BLOOD SPECIMEN / Unknown 03/11/2014 7:13 AM QUALITY CONTROL SUPERVISOR 03/11/2014 7:14 AM QUALITY CONTROL SUPERVISOR Narrative [facility] ([facility]) - 03/12/2014 2:00 AM QUALITY CONTROL SUPERVISOR Start in 4 weeks Moises Blue MD LAB - CHEMISTRY JEAN-PIERRE TAVERA [facility] ([facility]) * CBC W AUTO DIFFERENTIAL (03/11/2014 7:13 AM QUALITY CONTROL SUPERVISOR) Only the most recent of3 resultswithin the time period is included. [facility] WBC 5.3 3.8 - 10.8 Thousand/u L [facility] ([facility]) RBC 4.30 3.80 - 5.10 Million/uL [facility] ([facility]) Hemoglobin 13.4 11.7 - 15.5 g/dL [facility] ([facility]) Hematocrit 39.5 35.0 - 45.0 % [facility]) MCV 91.8 80.0 - 100.0 fL [facility] ([facility]) MCH 31.1 27.0 - 33.0 pg [facility] ([facility]) MCHC 33.9 32.0 - 36.0 g/dL [facility] ([facility]) RDW-CV 14.4 11.0 - 15.0 % [facility]) Platelet 235 140 - 400 Thousand/u L [facility] ([facility]) Neutrophils Absolute 2,549 1,500 - 7,800 cells/uL [facility] ([facility]) Lymphocyte Absolute Manual 2,279 850 - 3,900 cells/uL [facility] ([facility]) Monocytes Absolute 292 200 - 950 cells/uL [facility]) Eosinophils Absolute 164 15 - 500 cells/uL [facility] Basophil Absolute Manual 16 0 - 200 cells/uL [facility]) Neutrophils % 48.1 % [facility]) Lymphocytes % 43.0 % [facility]) Monocytes % 5.5 % [facility]) Eosinophils % 3.1 % [facility]) Basophil % 0.3 % [facility]) Comment: Test Performed at: [employer] [place] [address] ANANT GOFF DO,MPH Blood specimen (specimen) BLOOD SPECIMEN / Unknown 03/11/2014 7:13 AM QUALITY CONTROL SUPERVISOR 03/11/2014 7:14 AM QUALITY CONTROL SUPERVISOR Narrative [facility] ([facility]) - 03/12/2014 2:00 AM QUALITY CONTROL SUPERVISOR Start in 4 weeks Moises Blue MD LAB - HEMATOLOGY ORD ERABLES [facility] ([facility]) * ALT (03/11/2014 7:13 AM QUALITY CONTROL SUPERVISOR) Pathologist [facility] ALT 15 6 - 29 U/L [facility] ([facility]) Comment: Test Performed at: [employer] [place] [address] ANANT GOFF DO,MPH Blood specimen (specimen) BLOOD SPECIMEN / Unknown 03/11/2014 7:13 AM QUALITY CONTROL SUPERVISOR 03/11/2014 7:14 AM QUALITY CONTROL SUPERVISOR Narrative [facility] ([facility]) - 03/12/2014 2:00 AM QUALITY CONTROL SUPERVISOR Start in 4 weeks Moises Blue MD LAB - CHEMISTRY JEAN-PIERRE TAVERA Performing Organization Address [facility] de Phone Number [facility] ([facility]) * (ABNORMAL) TSH (03/11/2014 7:13 AM QUALITY CONTROL SUPERVISOR) Only the most recent of2 resultswithin the time period is included. TSH 0.01(L) mIU/L [facility] ([facility]) Comment: Reference Range > or = 20 Years 0.40-4.50 Ranges First trimester 0.26-2.66 Second trimester 0.55-2.73 Third trimester 0.43-2.91 Test Performed at: [employer] [facility] [place] [address] ANANT GOFF DO,MPH Blood specimen (specimen) BLOOD SPECIMEN / Unknown 03/11/2014 7:13 AM QUALITY CONTROL SUPERVISOR 03/11/2014 7:14 AM QUALITY CONTROL SUPERVISOR Narrative [facility] ([facility]) - 03/12/2014 2:00 AM QUALITY CONTROL SUPERVISOR Start in 4 weeks Moises Blue MD LAB - CHEMISTRY JEAN-PIERRE TAVERA Performing Organization Address [facility] de Phone Number [facility] ([facility]) * T4 FREE (03/11/2014 7:13 AM QUALITY CONTROL SUPERVISOR) Only the most recent of2 resultswithin the time period is included. T4 Free 1.6 0.8 - 1.8 ng/dL [facility] ([facility]) Comment: Test Performed at: [employer] [place] [address] ANANT GOFF DO,MPH Blood specimen (specimen) BLOOD SPECIMEN / Unknown 03/11/2014 7:13 AM QUALITY CONTROL SUPERVISOR 03/11/2014 7:14 AM QUALITY CONTROL SUPERVISOR Narrative [facility] ([facility]) - 03/12/2014 2:00 AM QUALITY CONTROL SUPERVISOR Start in 4 weeks Moises Blue MD LAB - CHEMISTRY JEAN-PIERRE TAVERA [facility] Organization Address City/State/ZIP Co de Phone Number [facility] ([facility]) * NM THYROID UPTAKE AND SCAN (01/28/2014 [...] indicated. Dictated by Arnel Dewitt M.D. (radiology technician) This report was approved by ARNEL DEWITT [...] indicated. Dictated by Arnel Dewitt M.D. (radiology technician) This report was approved by ARNEL DEWITT on 01/28/2014 2:58 PM . I, Dr. CONNIE HOLDEN M.D. have personally reviewed and interpreted thisexamination/study. This report was electronically signed by CONNIE HOLDEN M.D. on 01/28/20144:45 PM . Moises Blue MD [place] ORDERABLES * ERYTHROCYTE SEDIMENTATION RATE (01/21/2014 3:12 PM CDT) Pathologist [facility] Erythrocyte Sedimentation Rate [place] 15 0 - 20 MM/HR [facility] Blood specimen (specimen) BLOOD SPECIMEN / Unknown 01/21/2014 3:12 PM CDT 01/21/2014 3:36 PM CDT Moises Blue MD LAB - HEMATOLOGY ORD ERABLES [address] [phone] * (ABNORMAL) COMPREHENSIVE METABOLIC PANEL (01/21/2014 3:12 PM CDT) BUN 12 7 - 26 mg/dL [facility] Creatinine 0.5(L) 0.6 - 1.2 mg/dL [facility] Sodium 140 136 - 145 mmol/L [facility] Potassium 4.1 3.5 - 4.5 mmol/L [facility] Chloride 106 98 - 107 mmol/L [facility] CO2 24 22 - 29 mmol/L [facility] Glucose 116(H) 70 - 115 mg/dL [facility] Calcium 8.9 8.4 - 10.2 mg/dL [facility] Protein Total 6.2 6.0 - 8.3 g/dL [facility] Albumin 3.2(L) 3.4 - 5.0 g/dL [facility] Bilirubin Total 0.4 0.2 - 1.2 mg/dL [facility] Alkaline Phosphatase 66 40 - 150 Units/L [facility] ALT 18 0 - 55 Units/L [facility] AST 17 5 - 34 Units/L [facility] Anion Gap 14 8 - 18 [facility] BUN/Creatinine Ratio 24(H) 7 - 23 [facility] Osmolality Calculated 276 270 - 300 mOsm/kg [facility] Albumin/Globulin Ratio 1.1 1.1 - 2.3 [facility] eGFR >60 >60 mL/min/1.7 3 m2 [facility] Blood specimen (specimen) BLOOD SPECIMEN / Unknown 01/21/2014 3:12 PM CDT 01/21/2014 3:37 PM CDT Moises Blue MD LAB - CHEMISTRY JEAN-PIERRE TAVERA [facility] Organization Address City/State/[facility] Co de Phone Number [address] [phone] * (ABNORMAL) THYROTROPIN RECEPTOR ANTIBODY (01/21/2014 3:12 PM CDT) Thyrotropin Receptor Antibody 3.47(H) 0.00 - 1.75 IU/L [facility] ([facility]) Blood specimen (specimen) BLOOD SPECIMEN / Unknown 01/21/2014 3:12 PM CDT 01/22/2014 9:05 AM CDT Narrative [facility] ([place] - 01/23/2014 3:21 PM CDT Performed at: - [address] [id number] [employer]: Anant Montelongo MD, Phone: [phone] Moises Blue MD LAB - CHEMISTRY JEAN-PIERRE Bazzi Organization Address City/State/ZIP Co de Phone Number [facility]
== END 2024-07-02 09:52 | disposition home or self-care (01) ==
LOC: ANHIMG 09:52
PROVIDERS: PCP Family Medicine; Visit Provider Obstetrics & Gynecology
DX: Z12.31 Encounter for screening mammogram for malignant neoplasm of breast (principal)
CPT/HCPCS: 77063; 77067